=== PATIENT | male | born 1960 | race Two or more races ===

== ENCOUNTER 2020-10-18 21:34 | Emergency (ER) | payer SELFPAY ==
[~2020-10-18] VITALS: Ht 177.8 cm; Wt 68.0 kg
[2020-10-18] MEDS ORDERED: HYDROcodone-ACET 5/325MG TAB PO ONE (23:30)
[2020-10-19 00:11] VITALS: BP 144/75
[2020-10-19] MEDS ORDERED: SULFAMETHOX W/TRIMETH(800/160MG) DS TAB PO ONE (01:15)
[2020-10-19] MEDS ORDERED: cefTRIAXone 1GM/50ML D5W 50 ML IV ONE (01:15)
== END 2020-10-19 02:57 | disposition home or self-care (01) ==
LOC: ER 21:39
DX: T83.9XXA Unspecified complication of genitourinary prosthetic device, implant and graft, initial encounter (principal); N39.0 Urinary tract infection, site not specified; X58.XXXA Exposure to other specified factors, initial encounter; Y93.89 Activity, other specified; Y92.89 Other specified places as the place of occurrence of the external cause; Y99.8 Other external cause status
CPT/HCPCS: 81002; 96365; 99284; J0696